=== PATIENT | male | born 1940 | race Two or more races ===

== ENCOUNTER 2018-11-06 10:08 | Emergency (ER) | payer MEDICAID, MEDICARE, OTHER ==
[~2018-11-06] VITALS: Ht 180.3 cm; Wt 78.9 kg
[~2018-11-06 10:08] MED LIST: ATEN-60; CARV12.544 PO; DIGO0.2570 PO; FENO1TAB42 PO; METF-371 PO; TAMS0.4C36 PO; TRAM-297 PO; VARD20TA PO; WARF5TAB PO
[2018-11-06 10:59] LABS: Basophils # (auto) 0.1 uL; Eosinophils # (auto) 0.1 uL; Eosinophils % (auto) 1.6 % (0.0-7.0); Monocytes # (auto) 0.5 uL
[2018-11-06 11:01] LABS: Hematocrit 53.8 % (41.0-53.0); Hemoglobin 18.1 g/dL (13.5-17.5); Lymphocytes # (auto) 0.7 uL; Mean Corpuscular Hemoglobin 30.6 pg (28.0-32.0); Mean Corpuscular Hgb Conc. 33.6 g/dL (32.0-36.0); Mean Corpuscular Volume 91.2 fL (80.0-100.0); Monocytes % (auto) 6.2 % (0.0-12.0); Neutrophils % (auto) 81.2 % (37.0-80.0); Nucleated Red Blood Cells % 1.3 %; Platelet Count (auto) 240 10^3/uL (140-450); Red Cell Distribution Width 14.7 % (11.8-14.3); White Blood Cell 7.4 10^3/uL (4.4-10.8)
[2018-11-06 11:10] LABS: Albumin 3.8 g/dL (3.4-5.0); Calcium 9.7 mg/dL (8.5-10.1); Potassium 4.1 mmol/L (3.5-5.1)
[2018-11-06 11:10] LABS: Urine Bacteria NONE SEEN /hpf (None Seen); Urine Blood 1+ /uL (Negative); Urine Specific Gravity 1.025 (1.001-1.035); Urine WBC 1 /hpf (0 - 3)
[2018-11-06 11:13] LABS: Bilirubin, Total 1.1 mg/dL (0.2-1.0); Total Protein 8.1 g/dL (6.4-8.2)
[2018-11-06] MEDS ORDERED: SODIUM CHLORIDE 0.9% 1,000 ML IVB ONE (11:52)
[2018-11-06] MEDS ORDERED: InsuLIN REG 1unit/0.01ml Soln (100units/ml) IV ONE (12:15)
[2018-11-06] MEDS ORDERED: cefTRIAXone 1GM/50ML D5W 50 ML IV ONE (12:15)
[2018-11-06 12:30] VITALS: BP 129/75
== END 2018-11-06 14:03 | disposition home or self-care (01) ==
LOC: ER 10:12
DX: N13.9 Obstructive and reflux uropathy, unspecified (principal); N41.9 Inflammatory disease of prostate, unspecified; E11.65 Type 2 diabetes mellitus with hyperglycemia; I48.91 Unspecified atrial fibrillation; I10 Essential (primary) hypertension; Z87.891 Personal history of nicotine dependence; Z98.61 Coronary angioplasty status; Z79.899 Other long term (current) drug therapy
CPT/HCPCS: 36415; 51702; 80053; 81001; 82962; 84484; 85025; 94761; 96365; 96375; 99284; J0696; J1815; J7030

== ENCOUNTER 2019-01-03 16:11 | Emergency (ER) | payer OTHER ==
[~2019-01-03] VITALS: Ht 170.2 cm; Wt 84.8 kg
[~2019-01-03 16:11] MED LIST changes: -ATEN-60; +ATOR10TA52; +FIN5T; -VARD20TA PO
[2019-01-03 17:27] LABS: Basophils # (auto) 0 uL; Basophils % (auto) 0.4 % (0.0-2.0); Eosinophils # (auto) 0.2 uL; Hematocrit 49.4 % (41.0-53.0); Hemoglobin 16.3 g/dL (13.5-17.5); Lymphocytes # (auto) 1.5 uL; Lymphocytes % (auto) 12.8 % (10.0-50.0); Mean Corpuscular Hemoglobin 29.4 pg (28.0-32.0); Mean Corpuscular Volume 88.9 fL (80.0-100.0); Monocytes # (auto) 0.9 uL; Monocytes % (auto) 7.6 % (0.0-12.0); Neutrophils # (auto) 9.2 uL; Neutrophils % (auto) 77.2 % (37.0-80.0); Platelet Count (auto) 282 10^3/uL (140-450); Red Blood Cells 5.55 10^6/uL (4.5-5.90); Red Cell Distribution Width 15.1 % (11.8-14.3); White Blood Cell 11.9 10^3/uL (4.4-10.8)
[2019-01-03 17:35] LABS: Albumin 3.1 g/dL (3.4-5.0); Calcium 8.9 mg/dL (8.5-10.1); Potassium 5.1 mmol/L (3.5-5.1)
[2019-01-03 17:38] LABS: BUN/Creatinine Ratio 14.8; Bilirubin, Total 0.6 mg/dL (0.2-1.0); Total Protein 7.8 g/dL (6.4-8.2)
[2019-01-03 17:50] LABS: Urine Specific Gravity 1.027 (1.001-1.035)
[2019-01-03 17:52] LABS: Urine Blood 2+ /uL (Negative)
[2019-01-03 17:56] LABS: Urine WBC 0-2 /hpf (0 - 3)
[2019-01-03 17:57] LABS: Urine Bacteria NONE SEEN /hpf (None Seen)
[2019-01-03 19:15] VITALS: BP 114/68
== END 2019-01-03 19:16 | disposition home or self-care (01) ==
LOC: ER 16:11
DX: N13.9 Obstructive and reflux uropathy, unspecified (principal); R31.9 Hematuria, unspecified; I48.91 Unspecified atrial fibrillation; I25.10 Atherosclerotic heart disease of native coronary artery without angina pectoris; E11.9 Type 2 diabetes mellitus without complications; E78.00 Pure hypercholesterolemia, unspecified; I10 Essential (primary) hypertension; Z90.49 Acquired absence of other specified parts of digestive tract; Z79.899 Other long term (current) drug therapy
CPT/HCPCS: 36415; 80053; 81001; 85025

== ENCOUNTER 2019-01-07 08:13 | Inpatient (IN) | payer OTHER ==
[~2019-01-07] VITALS: Ht 172.7 cm; Wt 69.6 kg
[2019-01-07 08:57] LABS: Basophils # (auto) 0.1 uL; Basophils % (auto) 1.8 % (0.0-2.0); Eosinophils # (auto) 0.3 uL; Hematocrit 37.5 % (41.0-53.0); Hemoglobin 12.7 g/dL (13.5-17.5); Lymphocytes # (auto) 1.5 uL; Lymphocytes % (auto) 19.1 % (10.0-50.0); Mean Corpuscular Hemoglobin 29.9 pg (28.0-32.0); Mean Corpuscular Hgb Conc. 33.8 g/dL (32.0-36.0); Mean Corpuscular Volume 88.3 fL (80.0-100.0); Monocytes # (auto) 0.6 uL; Monocytes % (auto) 7.7 % (0.0-12.0); Neutrophils # (auto) 5.2 uL; Neutrophils % (auto) 67.4 % (37.0-80.0); Nucleated Red Blood Cells % 0.1 %; Platelet Count (auto) 350 10^3/uL (140-450); Red Blood Cells 4.24 10^6/uL (4.5-5.90); Red Cell Distribution Width 14.7 % (11.8-14.3); White Blood Cell 7.7 10^3/uL (4.4-10.8)
[2019-01-07 09:11] LABS: INR 3.03 (0.9-1.15); Partial Thromboplastin Time 42.4 sec (23.64-32.05)
[2019-01-07 09:13] LABS: Albumin 2.8 g/dL (3.4-5.0); BUN/Creatinine Ratio 18.7; Calcium 8.7 mg/dL (8.5-10.1); Potassium 4.6 mmol/L (3.5-5.1)
[2019-01-07 09:15] LABS: Bilirubin, Total 0.4 mg/dL (0.2-1.0); Total Protein 6.4 g/dL (6.4-8.2)
[2019-01-07 10:21] LABS: Urine Bacteria NONE SEEN /hpf (None Seen); Urine Blood 2+ /uL (Negative); Urine Hyaline Cast FEW /lpf (0 - 2); Urine Mucus FEW (None Seen); Urine Specific Gravity 1.024 (1.001-1.035); Urine WBC 4 /hpf (0 - 3)
[2019-01-07] MEDS ORDERED: PANTOPRAZOLE 40 MG/10 ML VIAL INJ IV ONE (12:00)
[2019-01-07] MEDS ORDERED: HEPARIN DRIP/D5W 100UNITS/ML 250 ML IV SCH ×2 (12:19→12:46)
[2019-01-07] MEDS ORDERED: ONDANSETRON HCL 4 MG/2 ML VIAL IV PRN (12:30)
[2019-01-07] MEDS ORDERED: HEPARIN SODIUM (PORCINE) 5000 UNITS/ML 1ML VIAL IV ONE (12:30)
[2019-01-07] MEDS ORDERED: SODIUM CHLORIDE 0.9% 1,000 ML IV ONE (12:30)
[2019-01-07] MEDS ORDERED: ACETAMINOPHEN 650 mg PER 20 mL UD PO PRN (12:30)
[2019-01-07] MEDS ORDERED: HYDROcodone-ACET 5/325MG TAB PO PRN (12:30)
[2019-01-07] MEDS ORDERED: MORPHINE SULF INJ 2 MG/ML SYRINGE 1ML IV PRN (13:00)
[2019-01-07] MEDS ORDERED: NITROGLYCERIN 0.4 MG SL TAB SL PRN (13:00)
[2019-01-07] MEDS: PANTOPRAZOLE 80 MG in SODIUM CHL 0.9% 60 ML IV SCH (17:36)
[2019-01-07 22:32] VITALS: BP 99/61
[2019-01-07 22:45] VITALS: BP 101/61
[2019-01-07 23:00] VITALS: BP 109/51
[2019-01-07] MEDS ORDERED: TEMAZEPAM 15 MG CAP PO ONE (23:00)
[2019-01-07 23:26] VITALS: BP 98/64
[2019-01-07 23:45] VITALS: BP 100/49
[2019-01-08] VITALS (20 sets, daily range): BP systolic 94–119; BP diastolic 47–76
--- NOTE | 2019-01-08 02:05 | NUR ---
Admit to [facility] Aadmitted to [facility] via [place] on school bus monitor. Patient transfered to bed, connected to unit monitoring, and weighed by bedscale. Patient oriented to SHAJI DUGGAN, primary RN, unit, room, bed, and unit policies regarding patient care and visiting hours. Right and left forearm IV - Clean/dry/intact. Blood infusing into the left arm at 125ml/hr, patient tolerating well, no signs or symptoms of reaction, sob, or distress. Right leg torres intact and draining. All questions and concerns addressed, patient verbalized understanding. Bed in lowest position, side rails up x2, call light within reach. Will continue to monitor.
--- NOTE | 2019-01-08 03:26 | NUR ---
END OF BLOOD TRANSFUSION VS: HR - 104, BP - 100/49, 02SAT - 96, RR - 18, TEMP - 97.6 ORAL. NO SIGNS OR SYMPTOMS OF SOB, DISTRESS OR REACTION. PATIENT TOLERATED WELL. WILL CONTINUE TO MONITOR.
[2019-01-08] MEDS: PANTOPRAZOLE 80 MG in SODIUM CHL 0.9% 60 ML IV SCH (06:30)
--- NOTE | 2019-01-08 07:20 | NUR ---
END OF SHIFT REPORT GIVEN TO DAY SHIFT RN. CARE ENDORSED.
--- NOTE | 2019-01-08 07:40 | NUR ---
Paged Dr Hernandez regarding patient's coagulation test and FFP transfusion. Awaiting call back.
--- NOTE | 2019-01-08 07:50 | NUR ---
Paged Dr Harding regarding patient's coagulations and FFP, awaiting call back.
--- NOTE | 2019-01-08 08:15 | NUR ---
Opening Shift Note Assumed care of patient, awake and alert. No S/S of distress/SOB or pain. Patient oxygen saturation pp% at room air. See interventions for complete assessment. Bed locked on low position, side rails up x2, bed alarms on at all times, call valentin within reach, instructed on POC and to callfor assist PRN, will continue to monitor for changes Q1hr and PRN.
--- NOTE | 2019-01-08 08:30 | NUR ---
Patient's Nancy at bedside. Updated on patient's status and POC, verbalized understanding. All questions and concerns addressed.
--- NOTE | 2019-01-08 09:36 | NUR ---
Dr Harding at bedside, updated on patient's status. Informed last PT and INR was 01/08 prior to 1 unit FFP transfusion, PT and INR not checked after 1 unit FFP transfusion. Received verbal order to transfuse 2 more units of FFP and re-check PT and INR after transfusion. Verbal orders read back and verified. Will carry out.
[2019-01-08] MEDS ORDERED: PANTOPRAZOLE 40 MG TAB PO SCH (10:00)
[2019-01-08 10:13] LABS: INR 1.83 (0.9-1.15)
--- NOTE | 2019-01-08 11:25 | NUR ---
Dr Goodman at bedside, updated on patient's status. Patient seen and examined. Will carry out new orders.
--- NOTE | 2019-01-08 13:30 | NUR ---
Transfusion of 2nd unit FFP completed, no transfusion reaction noted. Will continue to monitor.
--- NOTE | 2019-01-08 14:35 | NUR ---
Dr Carbajal at bedside, updated on patient's status. Patient seen and examined. Received verbal order to discontinue Protonix drip and start patient on clear liquid diet. Plan to do colonoscopy tomorrow. Verbal orders read back and verified. Will carry out.
[2019-01-08] MEDS ORDERED: GOLYTELY 4L KIT PO ONE (14:45)
--- NOTE | 2019-01-08 19:17 | NUR ---
OPENING SHIFT RECEIVED REPORT FROM DAY SHIFT RN. ASSUMED CARE OF PATIENT. PATIENT IN BED WATCHING TV WITH NO SIGNS OR SYMPTOMS OF SOB, PAIN OR DISTRESS. CURRENTLY ON ROOM AIR, 02 SAT - 98%. RIGHT ANTECUBITAL AND LEFT FOREARM IV - CLEAN/DRY/INTACT. GARCIA HUNG TO GRAVITY ON BED RAIL. UPDATED PATIENT ON PLAN OF CARE. REPOSITIONED FOR COMFORT. BED IN LOWEST POSITION, SIDE RAILS UP X2, CALL LIGHT WITHIN REACH. WILL CONTINUE TO MONITOR.
--- NOTE | 2019-01-09 02:30 | NUR ---
MORNING CARE PERFORMED MORNING CARE WITH CHG WIPES AND WASH CLOTHS TO THE FACE. PARTIAL LINEN CHANGE AND GOWN CHANGED. SKIN REASSESSED AT THIS TIME. REPOSITIONED FOR COMFORT. BED IN LOWEST POSITION, SIDE RAILS UP X2, CALL LIGHT WITHIN REACH. WILL CONTINUE TO MONITOR.
[2019-01-09 04:00] VITALS: BP 102/64
[2019-01-09 05:42] LABS: INR 1.75 (0.9-1.15)
[2019-01-09] MEDS ORDERED: GOLYTELY 4L KIT PO ONE (06:00)
--- NOTE | 2019-01-09 07:15 | NUR ---
END OF SHIFT REPORT GIVEN TO DAY SHIFT RN. CARE ENDORSED.
[2019-01-09 07:40] VITALS: BP 109/60
--- NOTE | 2019-01-09 07:45 | NUR ---
Opening Shift Note Assumed care of patient, awake and alert. Out of bed to bedside commode. No S/S of distress/SOB or pain. Patient oxygen saturation 98% at room air. See interventions for complete assessment. Call valentin within reach, instructed on POC and to call for assist PRN, will continue to monitor for changes Q1hr and PRN.
--- NOTE | 2019-01-09 07:55 | NUR ---
Patient out of room to pre-op for colonoscopy.
[2019-01-09] MEDS ORDERED: SODIUM CHLORIDE LOCK 10 ML ONE (08:37)
[2019-01-09] MEDS ORDERED: NALOXONE HCL 0.4 MG/ML VIAL ONE (08:37)
[2019-01-09] MEDS ORDERED: FLUMAZENIL 0.1 MG/ML INJ 10ML MDV IV ONE (08:37)
[2019-01-09] MEDS ORDERED: diphenhdrAMINE HCL 50 MG/1 ML VL ONE (08:38)
[2019-01-09] MEDS: fentaNYL CITRATE 100 MCG/2 ML VL ONE ×3 (09:01→09:10)
[2019-01-09] MEDS: MIDAZOLAM HCL 5 MG/ML-1ML VIAL ONE ×4 (09:01→09:20)
--- NOTE | 2019-01-09 10:10 | NUR ---
Patient back to room s/p sigmoidoscopy with findings of diverticulosis. VS WNL, BP 121/71, HR 95, RR 19, oxygen saturation at room air 96%. No S/S of SOB or pain noted. Will continue to monitor. Patient's Nancy at bedside. Updated on patient's status and POC. verbalized understanding. All questions and concerns addressed.
--- NOTE | 2019-01-09 11:45 | NUR ---
[facility] pt transferred to floor OLIVIA LENZ transferred to Tele floor via hospital bed on commuter train operator. All patient medications and personal belongings including upper partial denture transferred with patient to receiving floor. Other personal belongings with patient's Nancy who is at bedside. Patient care transfered to Aparna GUEVARA and informed her patient came in with torres catheter connected to leg bag that has been switched to a regular urine bag. Aparna GUEVARA verbalized understanding.
--- NOTE | 2019-01-09 11:50 | NUR ---
TRANSFER Patient transferred to bed 222A via gurney on campus monitor after SBAR was received from RN, Lina. All personal belongings transferred with patient and spouse is at bedside. Patient and spouse acclimated to room and policies. No S/S of distress/SOB or pain. Rueda catheter intact, patent and hung below bed. Bed in lowest, locked position with side rails up x2. Fall precautions in place and call light within reach.Will continue to monitor Q1hr/PRN.
[2019-01-09 13:00] VITALS: BP 111/72
--- NOTE | 2019-01-09 14:21 | NUR ---
NUTRITION ASSESSMENT NOTES Please refer to link notes of nutrition screen form filed under the intervention section of the plan of care for further details. Est. Needs: 1950 kcal to 2300 kcal (25-30 kcal/kgBW), 62 gms to 77 gms pro (0.8-1.0 gms/kgBW). Will continue to monitor pertinent labs and reassess nutrient need prn Thank you. Addendum: 01/09/19 at [address] Amended: Links added.
--- NOTE | 2019-01-09 15:12 | NUR ---
ROUNDS Patient resting in bed with eyes closed, even rise and fall of chest noted. No S/S of distress. Will continue to monitor.
--- NOTE | 2019-01-09 17:28 | NUR ---
ROUNDS Patient resting in bed, spouse at bedside. No S/S of distress noted. Will continue to monitor.
--- NOTE | 2019-01-09 19:12 | NUR ---
CLOSING NOTE Endorsed care of patient to NOC RN, Kota.
--- NOTE | 2019-01-09 19:26 | NUR ---
Opening Shift Note Assumed care of patient, awake and alert x 4. No S/S of distress/SOB or pain. Bed is in lowest position and locked. Call light within reach. Board updated. Tele box number matches monitor and leads are in correct placement. Rueda catheter secured to thigh, collection bag is below bladder attached to non-moveable part of bedframe. Instructed on POC and to call for assist PRN, will continue to monitor for changes Q1hr and PRN.
--- NOTE | 2019-01-09 20:18 | NUR ---
Spoke to MD Shore, who is covering for MD Harding, and informed him of patient's continued elevated blood glucose of 234 mg/dl. Order: Accuchecks ACHS with Regular Insulin per mild sliding scale. Order repeated, verified, and placed.
[2019-01-09 21:17] VITALS: BP 100/56
[2019-01-09] MEDS: InsuLIN REG 1unit/0.01ml Soln (100units/ml) SC SCH (21:35)
[2019-01-09] MEDS: ACCU-CHEK COMFORT CURVE STRIP VI SCH (21:35)
--- NOTE | 2019-01-09 22:57 | NUR ---
Paged MD Goodman because patient had a 6 beat run of ventricular tachycardia at 22:39. Patient was asleep at the time the event occurred and was unaware that it had happened. Patient was in Atrial Fibrillation at the time that event occurred and he returned immediately to Atrial fibrillation after event. Attempted to take EKG but patient's rhythm was at his baseline prior to event. Printout of event placed in chart. Vitals: BP: 107/66 with an MAP of 79, HR: 85, Pulse Ox: 97% on RA, RR: 18, Temp: 97.6, no pain.
--- NOTE | 2019-01-09 23:02 | NUR ---
MD Goodman called back. Informed him of event, current vital signs, and current potassium level. Per MD, continue monitoring. MD will see patient in AM.
[2019-01-10 04:36] VITALS: BP 97/55
[2019-01-10] MEDS: InsuLIN REG 1unit/0.01ml Soln (100units/ml) SC SCH ×2 (06:17→12:01)
[2019-01-10] MEDS: ACCU-CHEK COMFORT CURVE STRIP VI SCH ×2 (06:17→11:57)
[2019-01-10 06:47] LABS: Basophils # (auto) 0.1 uL; Basophils % (auto) 1.2 % (0.0-2.0); Eosinophils # (auto) 0.3 uL; Eosinophils % (auto) 5.6 % (0.0-7.0); Hematocrit 27.8 % (41.0-53.0); Hemoglobin 9.3 g/dL (13.5-17.5); Lymphocytes # (auto) 1.4 uL; Lymphocytes % (auto) 24.3 % (10.0-50.0); Mean Corpuscular Hemoglobin 29.9 pg (28.0-32.0); Mean Corpuscular Hgb Conc. 33.5 g/dL (32.0-36.0); Mean Corpuscular Volume 89.4 fL (80.0-100.0); Monocytes # (auto) 0.5 uL; Monocytes % (auto) 7.7 % (0.0-12.0); Neutrophils # (auto) 3.6 uL; Neutrophils % (auto) 61.2 % (37.0-80.0); Nucleated Red Blood Cells % 0.2 %; Platelet Count (auto) 295 10^3/uL (140-450); Red Blood Cells 3.12 10^6/uL (4.5-5.90); Red Cell Distribution Width 14.5 % (11.8-14.3); White Blood Cell 5.9 10^3/uL (4.4-10.8)
[2019-01-10 06:50] LABS: BUN/Creatinine Ratio 7.3; Calcium 7.9 mg/dL (8.5-10.1); Magnesium 1.5 mg/dL (1.6-2.6); Potassium 3.5 mmol/L (3.5-5.1)
--- NOTE | 2019-01-10 07:38 | NUR ---
OPENING NOTE Assumed care of patient from NOC RN, Kota. Patient awake and alert with no S/S of distress/SOB or pain. Rueda catheter intact, patent and hung below bed. Instructed on POC and to call for assist PRN, verbalized understanding. Bed in lowest, locked position with side rails up x2. Fall precautions in place and call light within reach. Will continue to monitor for changes Q1hr and PRN.
[2019-01-10 09:00] VITALS: BP 110/66
--- NOTE | 2019-01-10 09:41 | NUR ---
ROUNDS Patient resting in bed with eyes closed, even rise and fall of chest noted. No S/S of distress noted. Will continue to monitor.
[2019-01-10] MEDS ORDERED: MAGNESIUM OXIDE 400 MG TAB PO ONE (10:00)
[2019-01-10] MEDS ORDERED: LEVOFLOXACIN 500 MG TAB PO ONE (10:30)
--- NOTE | 2019-01-10 11:10 | NUR ---
FAMILY Patient's spouse, Nancy, at bedside,
[2019-01-10] MEDS: MAGNESIUM SULFATE 1GM/100ML 100 ML IV SCH ×3 (11:56→15:02)
[2019-01-10 13:00] VITALS: BP 101/65
--- NOTE | 2019-01-10 13:36 | NUR ---
ROUNDS Patient resting in bed, no S/S of distress noted. Will continue to monitor.
--- NOTE | 2019-01-10 15:00 | NUR ---
D/C Planning Per consult for home health for melissa tomlinson. Contacted [facility] health Ph:) Fax:) faxed medical records. Per Noemy from [facility] pt has been accepted and service to start within 48hrs upon d/c day. Contacted [facility] Ph:( [phone]) Fax:) faxed medical records requesting authorization. Advised MICAH Alves from [facility] to provided authorization to accepting home health. Pt was provided with information and accepting home health agency at bedside. Pt verbalize understanding. Addendum: 01/10/19 at 1905 by JUSTO HUSTON Amended: Links added.
--- NOTE | 2019-01-10 15:46 | NUR ---
assessment Patient is a 78 year old male who is alert and oriented. Patients cognitive abilities are intact. Prior to admission patient lived home with his Nancy and functioned with assistance. Per patient he will return home to his prior living arrangements post discharge and family will transport him home. Patient informed me he has a fww and a cane for home use. Patient informed me his PCP is Dr Klein. Patient informed me he feels safe returning home on discharge. Patient has no post discharge needs at this time. I informed patient he has a right to speak to a social work program coordinator regarding all care. I informed patient he has a right to participate in any and all discharge planning. Patient does not have a POA and advanced directive. I have offered patient information on POA and advanced directives. I informed the patient the advantages and benefits of having an Advanced Directive. Patient verbalized understanding and agreed to discharge plan. Addendum: 01/10/19 at 1550 by Kaylynn ALVARADO Amended: Links added.
--- NOTE | 2019-01-10 17:22 | NUR ---
DISCHARGE Discharge instructions given as ordered. Encouraged to follow up with PMD and specialists as instructed. All questions and concerns addressed, patient verbalized understanding. Medication reconciliation form completed and copy given to patient. IV's removed with catheter intact and pressure dressing applied. Rueda catheter left intact per MD's request, standard bag changed to leg bag. Telemetry unit returned to ICU. Patient taken to vehicle via wheelchair with all personal belongings, accompanied by staff and family member. No distress noted at time of departure.
== END 2019-01-10 17:22 | disposition home health service (06) | DRG 377 ==
LOC: ER 08:22 → TELE 08:23 → DOU IN ICU 23:44 → TELE-CENTR 01-09 11:51
PROVIDERS: ADMIT Internal Medicine; ATTEND Internal Medicine
PROC: 0DJD8ZZ Inspection of Lower Intestinal Tract, Via Natural or Artificial Opening Endoscopic (ICD-10-PCS; principal; 2019-01-07)
PROC: 30233K1 Transfusion of Nonautologous Frozen Plasma into Peripheral Vein, Percutaneous Approach (ICD-10-PCS; 2019-01-07)
PROC: 30233N1 Transfusion of Nonautologous Red Blood Cells into Peripheral Vein, Percutaneous Approach (ICD-10-PCS; 2019-01-08)
DX: K57.31 Diverticulosis of large intestine without perforation or abscess with bleeding (principal); N17.0 Acute kidney failure with tubular necrosis; E44.0 Moderate protein-calorie malnutrition; I50.32 Chronic diastolic (congestive) heart failure; D62 Acute posthemorrhagic anemia; N39.0 Urinary tract infection, site not specified; N40.0 Benign prostatic hyperplasia without lower urinary tract symptoms; I70.8 Atherosclerosis of other arteries; E78.5 Hyperlipidemia, unspecified; E11.65 Type 2 diabetes mellitus with hyperglycemia; I11.0 Hypertensive heart disease with heart failure; I48.91 Unspecified atrial fibrillation; Z79.01 Long term (current) use of anticoagulants; I25.10 Atherosclerotic heart disease of native coronary artery without angina pectoris; Z90.49 Acquired absence of other specified parts of digestive tract; Z79.84 Long term (current) use of oral hypoglycemic drugs; Z87.891 Personal history of nicotine dependence; Z98.61 Coronary angioplasty status; Z79.899 Other long term (current) drug therapy; Z68.23 Body mass index [BMI] 23.0-23.9, adult
CPT/HCPCS: 36415; 36430; 45378; 71045; 74176; 80048; 80053; 81001; 82962; 83735; 83880; 84484; 85018; 85025; 85610; 85730; 86850; 86900; 86901; 86920; 87081; 87493; 93005; 93306; 96361; 96365; 96375; 97116; 97530; C9113; G0378; J1815; J2250

== ENCOUNTER 2019-03-06 07:45 | Emergency (ER) | payer OTHER ==
[~2019-03-06] VITALS: Ht 172.7 cm; Wt 78.5 kg
[~2019-03-06 07:45] MED LIST changes: -ATOR10TA52; +ATOR10TA52 PO; -FIN5T; +FIN5T PO; -WARF5TAB PO
[2019-03-06 08:50] LABS: Urine Amorphous Crystal FEW /hpf (None Seen); Urine Bacteria NONE SEEN /hpf (None Seen); Urine Blood 3+ /uL (Negative); Urine Budding Yeast MANY /hpf (None Seen); Urine Specific Gravity 1.022 (1.001-1.035); Urine WBC 552 /hpf (0 - 3); Urine WBC Clumps PRESENT /hpf (None Seen)
[2019-03-06] MEDS ORDERED: cefTRIAXone 1GM/50ML D5W 50 ML IV ONE (09:00)
[2019-03-06] MEDS ORDERED: HYDROmorphone HCL 2 MG/ML VL ONE (09:11)
[2019-03-06] MEDS ORDERED: HYDROmorphone HCL 2 MG/ML VL IM ONE (09:15)
[2019-03-06] MEDS ORDERED: cefTRIAXone SOD 1,000 MG VL IM ONE (09:30)
[2019-03-06 11:23] VITALS: BP 136/76
[2019-03-12] MEDS ORDERED: MISC450C PO (11:23)
[2019-03-12] MEDS ORDERED: DIGO0.1262 PO (11:23)
[2019-03-12] MEDS ORDERED: INSU100I4 SC (11:23)
[2019-03-12] MEDS ORDERED: LISI-706 PO (11:23)
[2019-03-12] MEDS ORDERED: APIX5TAB PO (11:23)
[2019-03-12] MEDS ORDERED: INSLANTI SC (11:23)
[2019-03-12] MEDS ORDERED: OMEP20TA PO (11:23)
[2019-03-12] MEDS ORDERED: SULF-92 PO (11:23)
== END 2019-03-06 13:10 | disposition home or self-care (01) ==
LOC: ER 07:48
DX: N39.0 Urinary tract infection, site not specified (principal); N40.0 Benign prostatic hyperplasia without lower urinary tract symptoms; E11.9 Type 2 diabetes mellitus without complications; E78.5 Hyperlipidemia, unspecified; I10 Essential (primary) hypertension; Z90.49 Acquired absence of other specified parts of digestive tract; Z98.61 Coronary angioplasty status; Z79.899 Other long term (current) drug therapy
CPT/HCPCS: 51702; 81001; 96372; 99284; J0696; J1170